=== PATIENT | female | born 1955 | race Caucasian/White ===

== ENCOUNTER → 2020-02-01 12:55 | Outpatient (CLI) | payer BC, SELFPAY ==
--- NOTE | ~2020-02-01 | MM_ITS ---
EXAMINATION: MM screening [facility] w [facility] HISTORY: Screening mammogram TECHNIQUE: Craniocaudal and mediolateral oblique 3-D tomosynthesis images were obtained and synthetic 2-D images were generated. CAD analysis was submitted and interpreted. COMPARISON: 09/30/2018, 09/24/2017, 08/22/2016 bilateral digital screening mammogram examinations BREAST PARENCHYMAL COMPOSITION: There are scattered areas of fibroglandular density. FINDINGS: There is no evidence of suspicious mass, calcification, or architectural distortion to sugg est malignancy in either breast. There has been no suspicious interval change. IMPRESSION: 1. No mammographic evidence of malignancy. 2. Recommend routine screening mammography in one year. BI-RADS Category 1: Negative Reviewed, dictated and finalized at location A.
== END ==
PROVIDERS: PCP Family Medicine; Visit Provider Obstetrics & Gynecology
DX: Z12.31 Encounter for screening mammogram for malignant neoplasm of breast (principal)
CPT/HCPCS: 77063; 77067

== ENCOUNTER → 2020-10-13 08:52 | Outpatient (CLI) | payer OTHER, SELFPAY ==
--- NOTE | ~2020-10-13 | XR_ITS ---
EXAMINATION: XR knee RT 3V DATE: 10/13/2020 09:30 INDICATION: Right knee pain and swelling TECHNIQUE: Weight bearing anteroposterior, sunrise, and flexed lateral views of the affected knee wer e obtained COMPARISON: None. FINDINGS: Alignment is normal. No fracture. Joint spaces appear relatively preserved. Small marginal osteophyt es at the patellofemoral compartment. Increased density of the suprapatellar pouch suggesting a moder ate-sized joint effusion. Soft tissues are otherwise unremarkable. IMPRESSION: 1. Mild patellofemoral osteoarthritis with likely moderate right knee joint effusion. Reviewed, dictated and finalized at location B. IMPRESSION: 1. Mild patellofemoral osteoarthritis with likely moderate right knee joint eff usion.
== END ==
PROVIDERS: PCP Internal Medicine; Visit Provider Internal Medicine
DX: M25.569 Pain in unspecified knee (principal); M17.11 Unilateral primary osteoarthritis, right knee; M25.461 Effusion, right knee
CPT/HCPCS: 73562

== ENCOUNTER → 2021-01-02 13:55 | Outpatient (CLI) | payer OTHER, SELFPAY ==
--- NOTE | ~2021-01-02 | XR_ITS ---
EXAMINATION: XR foot LT min 3V EXAM DATE: 01/02/2021 14:22 INDICATION: M79.673 - Pain in unspecified foot. pt c/o pain in left foot mid plantar surface, aching since yesterday when stepped back on metal bar. TECHNIQUE: Left foot dorsoplantar, lateral and oblique projections obtained and reviewed. There is n o prior study for comparison. FINDINGS: Left metatarsal bones unremarkable. There are no acute fractures or dislocations identifi ed. There is no subcutaneous gas. The soft tissue is unremarkable. There are no radiopaque foreig n bodies. IMPRESSION: 1. Unremarkable left foot exam. Reviewed, dictated and finalized at location A.
== END ==
PROVIDERS: PCP Internal Medicine; Visit Provider Internal Medicine
DX: M79.672 Pain in left foot (principal)
CPT/HCPCS: 73630

== ENCOUNTER → 2021-02-01 10:34 | Outpatient (CLI) | payer OTHER, SELFPAY ==
--- NOTE | ~2021-02-01 | MM_ITS ---
EXAMINATION: MM screening [facility] BI w [facility] HISTORY: Screening mammogram TECHNIQUE: Craniocaudal and mediolateral oblique 3-D tomosynthesis images were obtained and synthetic 2-D images were generated. CAD analysis was submitted and interpreted. COMPARISON: 02/01/2020, 09/23/2018, 09/24/2017 bilateral digital screening mammogram examinations BREAST PARENCHYMAL COMPOSITION: The breasts are heterogeneously dense, which may obscure small masses . FINDINGS: There is no evidence of suspicious mass, calcification, or architectural distortion to sugg est malignancy in either breast. There has been no suspicious interval change. IMPRESSION: 1. No mammographic evidence of malignancy. 2. Recommend routine screening mammography in one year. BI-RADS Category 1: Negative Reviewed, dictated and finalized at location A.
== END ==
PROVIDERS: Visit Provider Obstetrics & Gynecology
DX: Z12.31 Encounter for screening mammogram for malignant neoplasm of breast (principal)
CPT/HCPCS: 77063; 77067

== ENCOUNTER → 2021-07-04 01:43 | Outpatient (CLI) | payer OTHER, SELFPAY ==
[2021-07-05 02:21] LABS: SARS-CoV-2 RNA PCR Negative
== END ==
PROVIDERS: PCP Internal Medicine; Visit Provider Nurse Practitioner
DX: Z20.822 Contact with and (suspected) exposure to COVID-19 (principal)
CPT/HCPCS: C9803; U0003; U0005

== ENCOUNTER → 2022-06-04 10:33 | Outpatient (CLI) | payer OTHER, SELFPAY ==
--- NOTE | ~2022-06-04 | MM_ITS ---
EXAMINATION: MM screening [facility] BI w navid HISTORY: Screening mammogram TECHNIQUE: Craniocaudal and mediolateral oblique 3-D tomosynthesis images were obtained and synthetic 2-D images were generated. CAD analysis was submitted and interpreted. COMPARISON: 02/01/2021, 01/24/2020, 09/30/2018 BREAST PARENCHYMAL COMPOSITION: There are scattered areas of fibroglandular density. FINDINGS: No suspicious mass, calcification, or architectural distortion are identified in either stan ast to suggest malignancy. There has been no suspicious interval change. IMPRESSION: 1. No mammographic evidence of malignancy. 2. Recommend routine screening mammography in one year. BI-RADS Category 1: Negative Reviewed, dictated and finalized at location A. STRIAL NURSE
== END ==
PROVIDERS: PCP Internal Medicine; Visit Provider Obstetrics & Gynecology
DX: Z12.31 Encounter for screening mammogram for malignant neoplasm of breast (principal)
CPT/HCPCS: 77063; 77067

== ENCOUNTER 2022-07-24 17:00 | Outpatient (CLI) | payer OTHER, SELFPAY ==
--- NOTE | ~2022-07-24 | XR_ITS ---
EXAMINATION: [id number] DATE: 07/24/2022 17:25 INDICATION: Pleurodynia. TECHNIQUE: A frontal view of the chest and 2 views of the left ribs were obtained. COMPARISON: Chest 2 views 08/23/2011 FINDINGS: There are airspace opacities in left lower lobe. There is a small left pleural effusion. No pneumothorax. The heart size is normal. There is no acute rib fracture. IMPRESSION: 1. Airspace opacities in left lower lobe, consistent with pneumonia. 2. Small left pleural effusion. 3. No acute rib fracture. Reviewed, dictated and finalized at location A. 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
== END 2022-07-24 17:01 | disposition home or self-care (01) ==
LOC: ANHIMG 17:02
PROVIDERS: PCP Internal Medicine; Visit Provider Nurse Practitioner
DX: R07.81 Pleurodynia (principal); J90 Pleural effusion, not elsewhere classified; R91.8 Other nonspecific abnormal finding of lung field
CPT/HCPCS: 71101

== ENCOUNTER → 2022-11-25 15:55 | Outpatient (CLI) | payer SELFPAY ==
--- NOTE | ~2022-11-25 | XR_ITS ---
EXAMINATION: XR chest 2V 11/25/2022 16:16 INDICATION: Cough PROCEDURE: 2 view chest COMPARISON: 08/23/2011 FINDINGS: The lungs are clear. The lungs are hyperinflated which is consistent with, but not diagnost ic of chronic obstructive pulmonary disease. The cardiomediastinal silhouette is within normal limit s. There are no pleural effusions. There is no pneumothorax suspected. IMPRESSION: 1: NO ACUTE CARDIOPULMONARY DISEASE. Reviewed, dictated and finalized at location B.
== END ==
PROVIDERS: PCP Nurse Practitioner; Visit Provider Nurse Practitioner
DX: R05.9 Cough, unspecified (principal)
CPT/HCPCS: 71046

== ENCOUNTER → 2023-06-05 11:09 | Outpatient (CLI) | payer MEDICARE, SELFPAY ==
--- NOTE | ~2023-06-05 | MM_ITS ---
EXAMINATION: MM screening [facility] BI w navid HISTORY: Screening mammogram TECHNIQUE: Craniocaudal and mediolateral oblique 3-D tomosynthesis images were obtained and synthetic 2-D images were generated. CAD analysis was submitted and interpreted. COMPARISON: 06/04/2022, 02/01/2021, 02/01/2020 BREAST PARENCHYMAL COMPOSITION:The breasts are heterogeneously dense, which may obscure small masses. FINDINGS: No suspicious mass, calcification, or architectural distortion are identified in either stan ast to suggest malignancy. There has been no suspicious interval change. IMPRESSION: No mammographic evidence of malignancy. Recommend routine screening mammography in one year. BI-RADS Category 1: Negative Reviewed, dictated and finalized at location . CLEANER
== END ==
PROVIDERS: PCP Obstetrics & Gynecology; Visit Provider Obstetrics & Gynecology
DX: Z12.31 Encounter for screening mammogram for malignant neoplasm of breast (principal)
CPT/HCPCS: 77063; 77067

== ENCOUNTER → 2023-08-19 08:54 | Outpatient (CLI) | payer MEDICARE, SELFPAY ==
--- NOTE | ~2023-08-19 | XR_ITS ---
XR chest 2V DATE: 08/19/2023 09:07 INDICATION: Chronic cough TECHNIQUE: 2 views COMPARISON: 11/25/2022 2 view chest FINDINGS: Bilateral hyperinflation and relative flattening the diaphragm, consistent with COPD. No pulmonary infiltrate or consolidation, pleural effusion or pulmonary vascular congestion or pneumo thorax is detected. Normal heart size. No hilar or mediastinal enlargement. Mild degenerative spurring and mild dextroscoliosis of the thoracic spine. Osteopenia. IMPRESSION: Bilateral hyperinflation suggesting COPD; otherwise no active cardiopulmonary disease Reviewed, dictated and finalized at location L. SAW OPERATOR IMPRESSION: Bilateral hyperinflation suggesting COPD; otherwise no active cardi opulmonary disease
== END ==
PROVIDERS: PCP Nurse Practitioner; Visit Provider Nurse Practitioner
DX: R91.8 Other nonspecific abnormal finding of lung field (principal); R05.3 Chronic cough
CPT/HCPCS: 71046

== ENCOUNTER 2024-02-02 10:40 | Outpatient (CLI) | payer MEDICARE, SELFPAY ==
--- NOTE | ~2024-02-02 | XR_ITS ---
XR foot RT min 3V Ordering provider: Dusty Rushing DO History: . M76.60 - Achilles tendinitis, unspecified leg . Comparison: March 02, 2018 FINDINGS: BONES: No acute fracture or dislocation. JOINT SPACES: Normal. No tarsal coalition. SOFT TISSUES: Normal. IMPRESSION: No acute osseous abnormality of the right foot. Reviewed, dictated and finalized at location A.
== END 2024-02-02 10:41 ==
PROVIDERS: PCP Nurse Practitioner; Visit Provider Internal Medicine
DX: M76.60 Achilles tendinitis, unspecified leg (principal)
CPT/HCPCS: 73630

== ENCOUNTER 2024-03-31 09:00 | Outpatient (CLI) | payer MEDICARE, SELFPAY ==
--- NOTE | ~2024-03-31 | MR_ITS ---
EXAMINATION: MR ankle RT wo con DATE: 03/31/2024 09:33 INDICATION: Right lower limb Achilles tendinitis TECHNIQUE: Magnetic resonance imaging (MRI) of the right ankle was performed without intravenous cont rast. Sequences included sagittal, coronal, and axial proton-density weighted fast spin echo without and with fat saturation. COMPARISON: Right foot radiographs dated 02/02/2024 FINDINGS: Medial ankle ligaments: Deep and superficial deltoid ligaments as well as the spring ligament are normal. Lateral ankle ligaments: The anterior and posterior inferior tibiofibular ligaments are normal. The anterior talofibular, calc aneofibular and posterior talofibular ligaments are normal. Tendons: Mild Achilles tendinosis with fusiform thickening of the tendon centered approximately 5 cm proximal to the calcaneal insertion. There is a tiny intrasubstance tear at this location involving a negligib le portion of the cross-sectional area of the tendon. There is mild peritendinitis. There is also mil d increased fluid signal consistent with mild tenosynovitis surrounding the normal peroneus longus an d brevis tendons. In the normal tibialis posterior tendon. The flexor digitorum longus and flexor bonnie lucis longus tendons are normal. The tibialis anterior and extensor hallucis longus and extensor digi torum longus tendons are normal. Plantar fascia: Plantar aponeurosis is normal. Bones/other: Bone alignment is normal. No fracture. Mild polyarticular osteoarthritis in the midfoot with minimal subarticular edema-like or cystlike changes at the tarsal metatarsal joints, along the talofibular di ctation the ankle joint and with more prominent cystic change in the navicular along its articulation with the medial cuneiform. Marrow signal is otherwise unremarkable. Fluid: Physiologic amount fluid at the joint spaces. Mild likely reactive edema at triggers fat pad. IMPRESSION: 1. Mild Achilles peritendinitis. Mild tendinosis and tiny intrasubstance split tear centered 5 cm pro ximal to its calcaneal insertion. 2. Mild peroneal and tibialis posterior tenosynovitis with normal appearing tendons. 3. Mild polyarticular osteoarthritis at the right ankle and multiple joints in the midfoot. Reviewed, dictated and finalized at location A. IMPRESSION: 1. Mild Achilles peritendinitis. Mild tendinosis and tiny intrasubstance split tear centered 5 cm proximal to its calcaneal insertion. 2. Mild peroneal and tibialis posterior tenosynovitis with normal appearing ten dons. 3. Mild polyarticular osteoarthritis at the right ankle and multiple joints in the midfoot.
== END 2024-03-31 09:01 | disposition home or self-care (01) ==
LOC: MICIMG 09:00
PROVIDERS: PCP Nurse Practitioner; Visit Provider Podiatrist Foot & Ankle Surgery
DX: M19.071 Primary osteoarthritis, right ankle and foot (principal); M76.61 Achilles tendinitis, right leg; D21.21 Benign neoplasm of connective and other soft tissue of right lower limb, including hip; M66.361 Spontaneous rupture of flexor tendons, right lower leg
CPT/HCPCS: 73721

== ENCOUNTER 2024-04-21 13:43 | Outpatient (CLI) | payer MEDICARE, SELFPAY ==
--- NOTE | ~2024-04-21 | XR_ITS ---
XR chest 2V Ordering provider: Dusty Rushing DO History: 68 years Female with . cp with sinus congestion . Comparison: August 19, 2023 FINDINGS: MEDIASTINUM: The cardiac silhouette is not enlarged. LUNGS: No infiltrates, effusions or pneumothorax. OTHER: No free air under the diaphragm. Kyphosis of the thoracic spine with degenerative changes. IMPRESSION: No acute cardiopulmonary pathology. Reviewed, dictated and finalized at location A.
== END 2024-04-21 13:44 | disposition home or self-care (01) ==
LOC: MICIMG 13:44
PROVIDERS: PCP Nurse Practitioner; Visit Provider Internal Medicine
DX: R07.9 Chest pain, unspecified (principal); R09.81 Nasal congestion
CPT/HCPCS: 71046

== ENCOUNTER 2024-06-07 10:37 | Outpatient (CLI) | payer MEDICARE, SELFPAY ==
--- NOTE | ~2024-06-07 | MM_ITS ---
EXAMINATION: MM screening [facility] BI w [facility] HISTORY: Screening TECHNIQUE: Craniocaudal and mediolateral oblique 3-D tomosynthesis images were obtained and synthetic 2-D images were generated. CAD analysis was submitted and interpreted. COMPARISON: 09/24/2017 BREAST PARENCHYMAL COMPOSITION: Not dense: There are scattered areas of fibroglandular density. FINDINGS: There is no evidence of suspicious mass, calcification, or architectural distortion to sugg est malignancy in either breast. There has been no suspicious interval change. IMPRESSION: 1. No mammographic evidence of malignancy. 2. Recommend routine screening mammography in one year. BI-RADS Category 1: Negative Reviewed, dictated and finalized at location B. IGN EXCHANGE CLERK
== END 2024-06-07 10:38 | disposition home or self-care (01) ==
LOC: MICIMG 10:37
PROVIDERS: PCP Obstetrics & Gynecology; Visit Provider Obstetrics & Gynecology
DX: Z12.31 Encounter for screening mammogram for malignant neoplasm of breast (principal)
CPT/HCPCS: 77063; 77067

== ENCOUNTER 2024-09-13 14:53 | Outpatient (CLI) | payer MEDICARE, SELFPAY ==
--- NOTE | ~2024-09-13 | XR_ITS ---
EXAMINATION: XR chest 2V Exam Date/Time: 09/13/2024 15:00 CDT HISTORY: R05.9 - Cough, unspecified Comparison: 04/21/2024. RESULT: Lines, tubes, and devices: None. Lungs and pleura: Clear. Cranial images calcifications. Cardiomediastinal silhouette: Stable. Other: No acute osseous or upper abdominal finding. IMPRESSION: No acute cardiopulmonary process. Reviewed, dictated and finalized at location K.
== END 2024-09-13 14:54 | disposition home or self-care (01) ==
LOC: MICIMG 14:55
PROVIDERS: PCP Nurse Practitioner; Visit Provider Nurse Practitioner
DX: R05.9 Cough, unspecified (principal)
CPT/HCPCS: 71046

== ENCOUNTER 2025-01-26 08:42 | Outpatient (CLI) | payer MEDICARE, SELFPAY ==
--- NOTE | ~2025-01-26 | US_ITS ---
EXAMINATION: US aorta [facility] DATE: 01/27/2025 7:23 CDT INDICATION: Epigastric pain TECHNIQUE: Grayscale, color Doppler, and pulsed Doppler images of the aorta and common iliac arteries were obtained. COMPARISON: None. FINDINGS: The proximal aorta measures 2.2 cm greatest sagittal dimension. The mid aorta measures 1.2 cm greates t sagittal dimension. The distal aorta measures 1.3 cm greatest sagittal dimension. The right common internal iliac artery measures 7 mm. The left common iliac artery measures 6 mm. IMPRESSION: 1. Normal caliber aorta without aneurysm. Reviewed, dictated and finalized at location A.
== END 2025-01-26 08:43 | disposition home or self-care (01) ==
LOC: MICIMG 08:43
PROVIDERS: PCP Nurse Practitioner; Visit Provider Nurse Practitioner
DX: R10.9 Unspecified abdominal pain (principal)
CPT/HCPCS: 76706

== ENCOUNTER 2025-03-31 08:07 | Outpatient (CLI) | payer MEDICARE, SELFPAY ==
--- NOTE | ~2025-03-31 | XR_ITS ---
EXAMINATION: XR abdomen/kub 1V, 03/31/2025 8:40 CDT HISTORY: R10.13 - Epigastric pain COMPARISON: No comparisons available. Technique: 3 view. Findings: Moderate fecal content, no dilated bowel loops No free air. No abnormal calcifications No acute osseous abnormality. Impression: 1. No acute abnormality. Reviewed, dictated and finalized at location A. Impression: 1. No acute abnormality.
== END 2025-03-31 08:08 | disposition home or self-care (01) ==
LOC: MICIMG 08:08
PROVIDERS: PCP Nurse Practitioner; Visit Provider Nurse Practitioner
DX: R10.13 Epigastric pain (principal)
CPT/HCPCS: 74018

== ENCOUNTER 2025-06-09 10:01 | Outpatient (CLI) | payer MEDICARE, SELFPAY ==
--- NOTE | ~2025-06-09 | MM_ITS ---
EXAMINATION: MM screening [facility] BI w [facility] HISTORY: Screening. TECHNIQUE: Craniocaudal and mediolateral oblique 3-D tomosynthesis images were obtained and synthetic 2-D images were generated. CAD analysis was submitted and interpreted. COMPARISON: 2023, 2022, and 2021 BREAST PARENCHYMAL COMPOSITION: Dense: The breasts are heterogeneously dense FINDINGS: No suspicious masses are seen. There are no suspicious calcifications. No unexplained architectural distortion is seen. There are no skin or nipple abnormalities identified. There is no adenopathy seen on the images submitted. IMPRESSION: No mammographic evidence to suggest malignancy is seen. The patient may return to screening mammography as per ACR guidelines. BI-RADS 1 - Negative. Reviewed, dictated and finalized at location C. 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
== END 2025-06-09 10:02 | disposition home or self-care (01) ==
PROVIDERS: PCP Obstetrics & Gynecology; Visit Provider Obstetrics & Gynecology
DX: Z12.31 Encounter for screening mammogram for malignant neoplasm of breast (principal)
CPT/HCPCS: 77063; 77067